=== PATIENT | female | born 1955 | race Caucasian/White ===

== ENCOUNTER 2024-06-22 11:41 | Outpatient (CLI) | payer BC, MEDICAID | END 2024-06-22 23:59 | disposition home or self-care (01) | LOC: MRI02 11:41 | PROVIDERS: ATTEND Physician Assistant | DX: M47.26 Other spondylosis with radiculopathy, lumbar region (principal); M51.17 Intervertebral disc disorders with radiculopathy, lumbosacral region; M48.061 Spinal stenosis, lumbar region without neurogenic claudication; M41.86 Other forms of scoliosis, lumbar region; M54.50 Low back pain, unspecified; M62.838 Other muscle spasm; Z72.0 Tobacco use | CPT/HCPCS: 72148 ==